=== PATIENT | male | born 1935 | race Caucasian/White ===

== ENCOUNTER 2016-08-02 07:26 | Day surgery (SDC) | payer MEDICARE ==
[2016-08-02 08:26] VITALS: BP 147/81; PULSE 72; RESP 14; TEMP 97; O2SAT 100
[2016-08-02 10:30] VITALS: BP 106/59; PULSE 61; RESP 18; O2SAT 100
[2016-08-02 10:45] VITALS: BP 115/71; PULSE 56; RESP 18; O2SAT 100
--- NOTE | 2016-08-02 12:25 | RADRPT ---
EXAM DATE/TIME: 08/02/2016 08:34 [facility] COMPARISON: No previous studies available for comparison. INDICATIONS : Ascites. MEDICAL HISTORY : Esophogeal varices. Cirrhosis. Diabetic. Hemochromatosis. SURGICAL HISTORY : EGD. Colonoscopy. Paracentesis. ENCOUNTER: Initial ACUITY: 1 day PAIN SCORE: 0/10 LOCATION: Right lower quadrant FLUID: Total volume of 12,000 of clear, yellow fluid was removed. Fluid was discarded. Paracentesis was therapeutic only. Post procedure scanning reveals no hematoma or other complication. TECHNIQUE: 1. Ultrasound guidance for abdominal paracentesis. 2. Paracentesis. The risks, benefits, and alternatives to ultrasound guided paracentesis were explained to the patient in detail including the risk of bleeding and infection. Written and verbal informed consent was obt ained. With the patient on the ultrasound table, ultrasound imaging was used to select the most appropriate approach for paracentesis. Overlying skin was prepped and draped in the usual sterile fashion and wi th a local anesthetic, a dermatotomy was made with an 11 blade scalpel. A 6 Burkinan [id number]-X-zmcdtzzi ca theter was introduced into the peritoneal cavity and fluid was collected. The patient tolerated the procedure well and left the ultrasound suite in stable condition. CONCLUSION: Uncomplicated ultrasound guided paracentesis. Patient refused albumin. Heron Loving MD FACR on August 02, 2016 at 12:23 Board Certified Radiologist. This report was verified electronically.
== END 2016-08-02 11:01 | disposition home or self-care (01) ==
LOC: HRAD 07:26 → HRIP 07:27 → HRAD 11:01
PROVIDERS: ATTEND Internal Medicine Gastroenterology
DX: R18.8 Other ascites (principal); K74.60 Unspecified cirrhosis of liver; I85.00 Esophageal varices without bleeding; E83.119 Hemochromatosis, unspecified; E11.9 Type 2 diabetes mellitus without complications
CPT/HCPCS: 49083; C1729

== ENCOUNTER 2016-08-24 07:29 | Day surgery (SDC) | payer MEDICARE ==
[2016-08-24 08:20] VITALS: BP 116/73; PULSE 52; RESP 18; TEMP 97; O2SAT 100
--- NOTE | 2016-08-24 09:25 | PD.RAD ---
Post US Procedure Prog Note Pre Procedure Diagnosis: (1) Ascites Post Procedure Diagnosis: (1) Ascites Procedure Date: Aug 24, 2016 Supervising Radiologist: Paul Alvarez Proceduralist/Assist: Cate Branham RDMS Anesthesia: Local Plan of Activity Patient to Unit: ROPU Patient Condition: Good See PACS Report for procedural detail/treatment Drainage Procedure Procedure 1 Imaging Guidance: Ultrasound Side: Right Procedure Type: Paracentesis Bulgarian: 6 Drainage: Suction Fluid Description: Paul Lucero MD Aug 24, 2016 09:25
[2016-08-24 10:00] VITALS: BP 104/56; PULSE 58; RESP 18; TEMP 97.6; O2SAT 100
[2016-08-24 10:15] VITALS: BP 98/57; PULSE 57; RESP 18; O2SAT 100
[2016-08-24] MEDS ORDERED: ALBUMIN HUMAN 25% 25 GM/100 ML BAGP IV ONE ×2 (10:59→11:00)
--- NOTE | 2016-08-24 16:04 | RADRPT ---
EXAM DATE/TIME: 08/24/2016 07:56 [facility] COMPARISON: No previous studies available for comparison. INDICATIONS : Ascites. MEDICAL HISTORY : Esophogeal varices. Cirrhosis. Diabetic. Hemochromatosis. SURGICAL HISTORY : EGD. Colonoscopy. Paracentesis. ENCOUNTER: Initial ACUITY: 1 day PAIN SCORE: 0/10 LOCATION: Right FLUID: Total volume of 13,800 cc of clear, yellow fluid was removed. Fluid was discarded. Paracentesis was therapeutic only. Post procedure scanning reveals no hematoma or other complication. TECHNIQUE: 1. Ultrasound guidance for abdominal paracentesis. 2. Paracentesis. The risks, benefits, and alternatives to ultrasound guided paracentesis were explained to the patient in detail including the risk of bleeding and infection. Written and verbal informed consent was obt ained. With the patient on the ultrasound table, ultrasound imaging was used to select the most appropriate approach for paracentesis. Overlying skin was prepped and draped in the usual sterile fashion and wi th a local anesthetic, a dermatotomy was made with an 11 blade scalpel. A 6 Pashto Sqr-K-gqcswvez ca theter was introduced into the peritoneal cavity and fluid was collected. The patient tolerated the procedure well and left the ultrasound suite in stable condition. CONCLUSION: Uncomplicated ultrasound guided paracentesis. Paul Alvarez MD on August 24, 2016 at 16:03 Board Certified Radiologist. This report was verified electronically.
== END 2016-08-24 11:45 | disposition home or self-care (01) ==
LOC: HRAD 07:29 → HRIP 07:33 → HRAD 11:45
PROVIDERS: ATTEND Internal Medicine Gastroenterology
DX: R18.8 Other ascites (principal)
CPT/HCPCS: 49083; C1729; P9047

== ENCOUNTER 2016-09-13 07:50 | Day surgery (SDC) | payer MEDICARE ==
[2016-09-13 08:49] VITALS: BP 111/71; PULSE 56; RESP 16; TEMP 97; O2SAT 96
[2016-09-13] MEDS ORDERED: ALBUMIN HUMAN 25% 25 GM/100 ML BAGP IV ONE (09:15)
[2016-09-13 10:30] VITALS: BP 111/72; PULSE 54; RESP 18; TEMP 97.7; O2SAT 99
[2016-09-13 10:45] VITALS: BP 111/72; PULSE 50; RESP 18; O2SAT 98
[2016-09-13 11:15] VITALS: BP 120/70; PULSE 57; RESP 18; O2SAT 100
[2016-09-13 11:45] VITALS: BP 101/62; PULSE 57; RESP 18; O2SAT 100
--- NOTE | 2016-09-13 13:51 | RADRPT ---
EXAM DATE/TIME: 09/13/2016 08:24 [facility] COMPARISON: US GUIDED ABD PARACENTESIS, August 24, 2016, 7:56. INDICATIONS : Ascites. MEDICAL HISTORY : Esophogeal varices. Cirrhosis. Diabetic. Hemochromatosis. SURGICAL HISTORY : EGD. Colonoscopy. Paracentesis. ENCOUNTER: [facility] ACUITY: 1 day PAIN SCORE: 1/10 LOCATION: Right lower quadrant FLUID: Total volume of 14,700 cc of clear, yellow fluid was removed. Fluid was discarded. Paracentesis was therapeutic only. Post procedure scanning reveals no hematoma or other complication. TECHNIQUE: 1. Ultrasound guidance for abdominal paracentesis. 2. Paracentesis. The risks, benefits, and alternatives to ultrasound guided paracentesis were explained to the patient in detail including the risk of bleeding and infection. Written and verbal informed consent was obt ained. With the patient on the ultrasound table, ultrasound imaging was used to select the most appropriate approach for paracentesis. Overlying skin was prepped and draped in the usual sterile fashion and wi th a local anesthetic, a dermatotomy was made with an 11 blade scalpel. A 6 Mongolian [id number]-E-dxstecsg ca theter was introduced into the peritoneal cavity and fluid was collected. The patient tolerated the procedure well and left the ultrasound suite in stable condition. CONCLUSION: Uncomplicated ultrasound guided paracentesis. Patient received albumin per protocol. Heron Loving MD FACR on September 13, 2016 at 13:49 Board Certified Radiologist. This report was verified electronically.
== END 2016-09-13 11:50 | disposition home or self-care (01) ==
LOC: HRAD 07:50 → HRIP 07:56 → HRAD 11:50
PROVIDERS: ATTEND Internal Medicine Gastroenterology
DX: R18.8 Other ascites (principal); E11.9 Type 2 diabetes mellitus without complications
CPT/HCPCS: 49083; 96365; C1729; P9047

== ENCOUNTER → 2016-09-28 | Outpatient (CLI) | payer MEDICARE ==
[2016-09-28 11:22] LABS: AUTOMATED NEUTROPHIL # 4.3 TH/MM3 (1.8-7.7); BASOPHIL # 0.1 TH/MM3 (0-0.2); BASOPHIL % 1.1 % (0.0-2.0); EOSINOPHIL # 0.3 TH/MM3 (0-0.4); EOSINOPHIL % 5.4 % (0.0-4.0); HEMATOCRIT 36.3 % (39.0-51.0); LYMPH % 9.5 % (9.0-44.0); LYMPHOCYTE # 0.5 TH/MM3 (1.0-4.8); MEAN CELL VOLUME 94.7 FL (80.0-100.0); MEAN CORPUSCULAR HGB CONC 32.7 % (32.0-36.0); MONO % 9.1 % (0.0-8.0); NEUT % 74.9 % (16.0-70.0); PLATELET COUNT 177 TH/MM3 (150-450); RED BLOOD COUNT 3.83 MIL/MM3 (4.50-5.90); RED CELL DISTRIBUTION WIDTH 16.2 % (11.6-17.2); WHITE BLOOD COUNT 5.7 TH/MM3 (4.0-11.0)
[2016-09-28 11:30] LABS: PROTHROMBIN TIME - PATIENT 11.2 SEC (9.8-11.6)
[2016-09-28 11:31] LABS: HEMO FLAGS DIFF FINAL
[2016-09-28 11:47] LABS: ALT (GPT) 35 U/L (12-78); ANION GAP 6 MEQ/L (5-15); AST (GOT) 37 U/L (15-37); BICARBONATE 24.2 MEQ/L (21.0-32.0); BLOOD UREA NITROGEN 38 MG/DL (7-18); CHLORIDE 108 MEQ/L (98-107); GLOMERULAR FILTRATION RATE 46 ML/MIN (>89); GLUCOSE,FASTING 150 MG/DL (74-99); POTASSIUM 4.7 MEQ/L (3.5-5.1); SODIUM (NA) 138 MEQ/L (136-145)
[2016-09-28 11:49] LABS: ALKALINE PHOSPHATASE 192 U/L (45-117); TOTAL BILIRUBIN ADULT 0.5 MG/DL (0.2-1.0)
== END ==
LOC: CLAB 10:47
PROVIDERS: ATTEND Internal Medicine Gastroenterology
DX: I85.10 Secondary esophageal varices without bleeding (principal); K74.69 Other cirrhosis of liver; N18.9 Chronic kidney disease, unspecified; R18.8 Other ascites
CPT/HCPCS: 36415; 80053; 85025; 85610

== ENCOUNTER 2016-09-30 07:45 | Day surgery (SDC) | payer MEDICARE ==
[2016-09-30 08:25] VITALS: BP 131/80; PULSE 58; RESP 18; TEMP 97; O2SAT 96
[2016-09-30] MEDS ORDERED: LIDOCAINE HCL 1% PF 30 ML VIAL ONE (10:11)
[2016-09-30 10:45] VITALS: BP 110/65; PULSE 54; RESP 16; TEMP 97.5; O2SAT 100
--- NOTE | 2016-09-30 10:53 | RADRPT ---
EXAM DATE/TIME: 09/30/2016 08:13 [facility] COMPARISON: US GUIDED ABD PARACENTESIS, September 13, 2016, 8:24. INDICATIONS : Ascites. MEDICAL HISTORY : Cirrhosis. Carcinoma, prostate. Esophageal varices. Ascites. Diabetes. Hemochromatosis. SURGICAL HISTORY : EGD. Colonoscopy. Paracentesis. Vasectomy. ENCOUNTER: Subsequent ACUITY: 2 weeks PAIN SCORE: 0/10 LOCATION: Right lower quadrant FLUID: Total volume of 12,900 cc of clear, yellow fluid was removed. Fluid was discarded. Paracentesis was therapeutic only. Post procedure scanning reveals no hematoma or other complication. TECHNIQUE: 1. Ultrasound guidance for abdominal paracentesis. 2. Paracentesis. The risks, benefits, and alternatives to ultrasound guided paracentesis were explained to the patient in detail including the risk of bleeding and infection. Written and verbal informed consent was obt ained. With the patient on the ultrasound table, ultrasound imaging was used to select the most appropriate approach for paracentesis. Overlying skin was prepped and draped in the usual sterile fashion and wi th a local anesthetic, a dermatotomy was made with an 11 blade scalpel. A 6 Zambian Bjr-W-vtqgxgiq ca theter was introduced into the peritoneal cavity and fluid was collected. The patient tolerated the procedure well and left the ultrasound suite in stable condition. CONCLUSION: Uncomplicated ultrasound guided paracentesis. Mo Lainez MD on September 30, 2016 at 10:50 Board Certified Radiologist. This report was verified electronically.
[2016-09-30 11:00] VITALS: BP 115/65; PULSE 54; RESP 16; O2SAT 100
[2016-09-30] MEDS ORDERED: ALBUMIN HUMAN 25% 75 GM IV ONE (11:00)
[2016-09-30 11:15] VITALS: BP 110/60; PULSE 60; RESP 16; O2SAT 100
[2016-09-30 11:30] VITALS: BP 112/62; PULSE 54; RESP 16; O2SAT 100
== END 2016-09-30 12:00 | disposition home or self-care (01) ==
LOC: HRAD 07:45 → HRIP 07:50 → HRAD 12:00
PROVIDERS: ATTEND Internal Medicine Gastroenterology
DX: R18.8 Other ascites (principal); E11.9 Type 2 diabetes mellitus without complications; I85.00 Esophageal varices without bleeding; Z85.46 Personal history of malignant neoplasm of prostate
CPT/HCPCS: 36415; 49083; 80053; 85025; 85610; 96365; C1729; P9047